=== PATIENT | female | born 1995 | race Caucasian/White ===

== ENCOUNTER 2018-03-07 11:45 | Outpatient (CLI) | payer OTHER ==
--- NOTE | 2018-03-07 13:48 | ULT ---
RIGHT BREAST ULTRASOUND: HISTORY: A 22-year-old female who incidentally discovered a mass in her right breast. The patient does not kn ow how long it has been there, as this is the first time she has done a breast exam. This mass is in the 11:30 position of the right breast. TECHNIQUE: Multiplanar flannery-scale and color Doppler images were obtained in a targeted ultrasound of the right b reast. COMPARISON: None. FINDINGS: There is a well circumscribed, macrolobulated mass with increased through transmission, measuring 1.7 x 0.8 x 1.5 cm in size, with the area of palpable abnormality at the 11:30 position, approximately 2 cm from the nipple. This has the appearance of a fibroadenoma. No suspicious mass or suspicious sh adowing are present. IMPRESSION: BI-RADS category 2-Benign findings. The patient was told to start performing breast self-examinations and to continue to evaluate this ma ss and to return should the mass become larger. POS: [facility]
== END 2018-03-07 11:46 | disposition home or self-care (01) ==
LOC: BICULT 11:45
PROVIDERS: ATTEND Family Medicine
DX: N63.11 Unspecified lump in the right breast, upper outer quadrant (principal)